=== PATIENT | male | born 1975 | race African-American/Black ===

== ENCOUNTER 2018-03-11 18:29 | Emergency (ER) | payer OTHER ==
[~2018-03-11] VITALS: Ht 177.8 cm; Wt 88.5 kg
[2018-03-11] MEDS ORDERED: TRAMADOL 50 MG50 MG PO (20:22)
[2018-03-11 20:44] VITALS: BP 138/90
== END 2018-03-11 20:49 | disposition home or self-care (01) ==
LOC: ER 18:29
DX: S63.502A Unspecified sprain of left wrist, initial encounter (principal); W23.0XXA Caught, crushed, jammed, or pinched between moving objects, initial encounter; Y93.89 Activity, other specified; Y92.89 Other specified places as the place of occurrence of the external cause; Y99.8 Other external cause status